=== PATIENT | female | born 1995 | race Two or more races ===

== ENCOUNTER 2019-03-07 13:58 | Emergency (ER) | payer MEDICAID ==
--- NOTE | 2019-03-07 14:31 | EDM.PDOC ---
ED HPI GENERAL MEDICAL PROBLEM - General Chief Complaint: ENGRAVER Problem Stated Complaint: ABDOMINAL PAIN 11 WEEKS Time Seen by Provider: 03/07/19 14:07 Source of Information: Reports: Patient History Limitations: Reports: No Limitations - History of Present Illness INITIAL COMMENTS - FREE TEXT/NARRATIVE: HISTORY AND PHYSICAL: History of present illness: Patient is a 24-year-old female who presents to the ED today with concern of lower abdominal pain and cramping and is approximately 11 weeks gestation. Patient states she follows with Dr. Grubbs at [facility] and has had an ultrasound and lab work. Patient states that everything is "normal "and she has not had any complications thus far in her . Patient denies any vaginal bleeding or discharge. Patient states she is sexually active with her in a monogamous relationship and had STD testing 1.5 weeks ago at [facility] which was negative according to patient. Patient denies any other symptoms or concerns. Patient states she has been having issues with "round ligament pain" that she was told by her ENGRAVER and states that her symptoms today feel like this but a little bit more constant. Patient denies fever, chills, chest pain, shortness of breath, or cough. Denies headache, neck stiff ness, change in vision, syncope, or near syncope. Denies nausea, vomiting, diarrhea, constipation, or dysuria. Has not noted any blood in urine or stool. Patient has been eating and drinking appropriately. Review of systems: As per history of present illness and below otherwise all systems reviewed and negative. Past medical history: As per history of present illness and as reviewed below otherwise noncontributory. Surgical history: As per history of present illness and as reviewed below otherwise noncontributory. Social history: See social history for further information Family history: As per history of present illness and as reviewed below otherwise noncontributory. Physical exam: General: Patient is alert, oriented, and in no acute distress. Patient sitting comfortably on exam table. HEENT: Atraumatic, normocephalic, pupils equal and reactive bilaterally, negative for conjunctival pallor or scleral icterus, mucous membranes moist, TMs normal bilaterally, throat clear, neck supple, nontender, trachea midline. No drooling or trismus noted. No meningeal signs. No hot potato voice noted. Lungs: Clear to auscultation, breath sounds equal bilaterally, chest nontender. Heart: S1S2, regular rate and rhythm without overt murmur Abdomen: Soft, nondistended, nontender. Negative for masses or hepatosplenomegaly. Negative for costovertebral tenderness. Pelvis: Stable nontender. Genitourinary: External genitalia grossly unremarkable. Small amount of white discharge in the vaginal vault. Negative cervical motion tenderness. Uterus approximately 10-12 weeks in gestation and non tender. Rectal: Deferred. Skin: Intact, warm, dry. No lesions or rashes noted. Extremities: Atraumatic, negative for cords or calf pain. Neurovascular unremarkable. Neuro: Awake, alert, oriented. Cranial nerves II through XII unremarkable. Cerebellum unremarkable. Motor and sensory unremarkable throughout. Exam nonfocal. Notes: Patient is adamant about leaving ED prior to all diagnostics completion. Discussed importance for follow-up with her ENGRAVER and primary care provider. Voices understanding and is agreeable to plan of care. Denies any further questions or concerns at this time. Diagnostics: CBC, CMP, UA, Uhcg, lipase, TVUS, G&C, Affirm Therapeutics: None Prescription: Flagyl Impression: Lower abdominal pain in Bacterial vaginosis Plan: 1. Please start and/or continue to take your vitamin with folic acid once daily. 2. Tylenol as needed for pain management. This is safe to use in . 3. Follow up with your ENGRAVER as discussed. Return to the ED as needed and as discussed. Definitive disposition and diagnosis as appropriate pending reevaluation and review of above. cramping Pain Score (Numeric/FACES): 7 - Related Data Allergies Allergy/AdvReac Type Severity Reaction Status Date / Time No Known Allergies Allergy Verified 03/07/19 14:23 Home Meds: Home Meds 95/Iron Fum/Folic/Dha [ + Dha Combo Pack] 1 each PO DAILY 03/07 [History] ED ROS GENERAL - Review of Systems Review Of Systems: Comprehensive ROS is negative, except as noted in HPI. ED EXAM, GENERAL - Physical Exam Exam: See Below (see dictation) Course - Vital Signs Last Recorded V/S: Last Vital Signs Temp 96.8 F 03/07/19 14:24 Pulse 71 03/07/19 17:10 Resp 18 03/07/19 17:10 BP 128/79 03/07/19 17:10 Pulse Ox 98 03/07/19 17:10 - Orders/Labs/Meds Orders: Active Orders 24 hr Category Date Time Status CHLAMYDIA AND GONORRHEA BY TMA Stat Lab 03/07/19 15:22 Received Labs: Laboratory Tests 03/07/19 03/07/19 03/07/19 Range/Units 14:50 14:50 14:50 WBC 12.17 H (4.0-11.0) K/uL RBC 4.56 (4.30-5.90) M/uL Hgb 14.3 (12.0-16.0) g/dL Hct 40.4 (36.0-46.0) % MCV 88.6 (80.0-98.0) fL MCH 31.4 (27.0-32.0) pg MCHC 35.4 (31.0-37.0) g/dL RDW Std Deviation 40.1 (28.0-62.0) fl RDW Coeff of Edwin 13 (11.0-15.0) % Plt Count 278 (150-400) K/uL MPV 10.20 (7.40-12.00) fL Neut % (Auto) 71.8 (48.0-80.0) % Lymph % (Auto) 21.4 (16.0-40.0) % [place] % (Auto) 5.9 (0.0-15.0) % Eos % (Auto) 0.7 (0.0-7.0) % Baso % (Auto) 0.2 (0.0-1.5) % Neut # (Auto) 8.7 H (1.4-5.7) K/uL Lymph # (Auto) 2.6 H (0.6-2.4) K/uL [place] # (Auto) 0.7 (0.0-0.8) K/uL Eos # (Auto) 0.1 (0.0-0.7) K/uL Baso # (Auto) 0.0 (0.0-0.1) K/uL Nucleated RBC % 0.0 /100WBC Nucleated RBCs # 0 K/uL Sodium 135 L (136-145) mmol/L Potassium 3.5 (3.5-5.1) mmol/L Chloride 102 (98-107) mmol/L Carbon Dioxide 20.9 L (21.0-32.0) mmol/L BUN 10 (7.0-18.0) mg/dL Creatinine 0.5 L (0.6-1.0) mg/dL Est Cr Clr Drug Dosing 136.03 mL/min Estimated GFR (MDRD) > 60.0 ml/min Glucose 92 (74-106) mg/dL Calcium 8.4 L (8.5-10.1) mg/dL Total Bilirubin 0.2 (0.2-1.0) mg/dL AST 14 L (15-37) IU/L ALT 20 (14-63) IU/L Alkaline Phosphatase 44 L (46-116) U/L Total Protein 7.5 (6.4-8.2) g/dL Albumin 3.6 (3.4-5.0) g/dL Globulin 3.9 (2.6-4.0) g/dL Albumin/Globulin Ratio 0.9 (0.9-1.6) Lipase 70 L (73-393) U/L HCG, Quant 452763.0 mIU/mL Urine Color Urine Appearance Urine pH (5.0-8.0) Ur Specific [place] (1.001-1.035) Urine Protein (NEGATIVE) mg/dL Urine Glucose (UA) (NEGATIVE) mg/dL Urine Ketones (NEGATIVE) mg/dL Urine Occult Blood (NEGATIVE) Urine Nitrite (NEGATIVE) Urine Bilirubin (NEGATIVE) Urine Urobilinogen (<2.0) EU/dL Ur Leukocyte Esterase (NEGATIVE) Urine HCG, Qual (NEGATIVE) Sary species DNA (NEGATIVE) Gardnerella DNA Probe (NEGATIVE) Trichomonas DNA Probe (NEGATIVE) 03/07/19 03/07/19 03/07/19 Range/Units 15:22 15:22 16:50 WBC (4.0-11.0) K/uL RBC (4.30-5.90) M/uL Hgb (12.0-16.0) g/dL Hct (36.0-46.0) % MCV (80.0-98.0) fL MCH (27.0-32.0) pg MCHC (31.0-37.0) g/dL RDW Std Deviation (28.0-62.0) fl RDW Coeff of Edwin (11.0-15.0) % Plt Count (150-400) K/uL MPV (7.40-12.00) fL Neut % (Auto) (48.0-80.0) % Lymph % (Auto) (16.0-40.0) % [place] % (Auto) (0.0-15.0) % Eos % (Auto) (0.0-7.0) % Baso % (Auto) (0.0-1.5) % Neut # (Auto) (1.4-5.7) K/uL Lymph # (Auto) (0.6-2.4) K/uL [place] # (Auto) (0.0-0.8) K/uL Eos # (Auto) (0.0-0.7) K/uL Baso # (Auto) (0.0-0.1) K/uL Nucleated RBC % /100WBC Nucleated RBCs # K/uL Sodium (136-145) mmol/L Potassium (3.5-5.1) mmol/L Chloride (98-107) mmol/L Carbon Dioxide (21.0-32.0) mmol/L BUN (7.0-18.0) mg/dL Creatinine (0.6-1.0) mg/dL Est Cr Clr Drug Dosing mL/min Estimated GFR (MDRD) ml/min Glucose (74-106) mg/dL Calcium (8.5-10.1) mg/dL Total Bilirubin (0.2-1.0) mg/dL AST (15-37) IU/L ALT (14-63) IU/L Alkaline Phosphatase (46-116) U/L Total Protein (6.4-8.2) g/dL Albumin (3.4-5.0) g/dL Globulin (2.6-4.0) g/dL Albumin/Globulin Ratio (0.9-1.6) Lipase (73-393) U/L HCG, Quant mIU/mL Urine Color YELLOW Urine Appearance CLEAR Urine pH 6.0 (5.0-8.0) Ur Specific [place] 1.025 (1.001-1.035) Urine Protein NEGATIVE (NEGATIVE) mg/dL Urine Glucose (UA) NEGATIVE (NEGATIVE) mg/dL Urine Ketones NEGATIVE (NEGATIVE) mg/dL Urine Occult Blood NEGATIVE (NEGATIVE) Urine Nitrite NEGATIVE (NEGATIVE) Urine Bilirubin NEGATIVE (NEGATIVE) Urine Urobilinogen 0.2 (<2.0) EU/dL Ur Leukocyte Esterase NEGATIVE (NEGATIVE) Urine HCG, Qual POSITIVE (NEGATIVE) Sary species DNA NEGATIVE (NEGATIVE) Gardnerella DNA Probe POSITIVE H (NEGATIVE) Trichomonas DNA Probe NEGATIVE (NEGATIVE) Departure - Departure Time of Disposition: 16:54 Disposition: Home, Self-Care 01 Clinical Impression: Lower abdominal pain, Bacterial vaginosis Qualifiers: Weeks of gestation: 11 weeks Qualified Code(s): Z3A.11 - 11 weeks gestation of - Discharge Information Instructions: First Trimester of , [id number], Abdominal Pain, Adult , [id number] Referrals: Nina Grubbs MD [Primary Care Provider] - Forms: ED Department Discharge Additional Instructions: The following information is given to patients seen in the emergency department who are being discharged to home. This information is to outline your options for follow-up care. We provide all patients seen in our emergency department with a follow-up referral. The need for follow-up, as well as the timing and circumstances, are variable depending upon the specifics of your emergency department visit. If you don't have a primary care physician on staff, we will provide you with a referral. We always advise you to contact your personal physician following an emergency department visit to inform them of the circumstance of the visit and for follow-up with them and/or the need for any referrals to a consulting specialist. The emergency department will also refer you to a specialist when appropriate. This referral assures that you have the opportunity for follow-up care with a specialist. All of these measure are taken in an effort to provide you with optimal care, which includes your follow-up. Under all circumstances we always encourage you to contact your private physician who remains a resource for coordinating your care. When calling for follow-up care, please make the office aware that this follow-up is from your recent emergency room visit. If for any reason you are refused follow-up, please contact the [facility] at and asked to speak to the emergency department charge nurse. [facility] [address] [place] [id number] [facility] [address] [place] [address] [facility] [address] [place] [address] 1. Please start and/or continue to take your vitamin with folic acid once daily. 2. Tylenol as needed for pain management. This is safe to use in . 3. Follow up with your ENGRAVER as discussed. Return to the ED as needed and as discussed. Sepsis Event Note - Evaluation Sepsis Screening Result: No Definite Risk - Focused Exam Vital Signs: Vital Signs Temp Pulse Resp BP Pulse Ox 03/07/19 17:10 71 18 128/79 98 03/07/19 14:24 96.8 F 85 18 131/78 99 Date Exam was Performed: 03/07/19 Time Exam was Performed: 21:15 - My Orders Last 24 Hours: My Active Orders 03/07/19 15:22 CHLAMYDIA AND GONORRHEA BY TMA Stat - Assessment/Plan Last 24 Hours: My Active Orders 03/07/19 15:22 CHLAMYDIA AND GONORRHEA BY TMA Stat
[2019-03-07 15:25] LABS: BLOOD UREA NITROGEN,BUN 10 mg/dL (7.0-18.0); CARBON DIOXIDE,CO2 20.9 mmol/L (21.0-32.0); CHLORIDE,CL 102 mmol/L (98-107); GLUCOSE RANDOM 92 mg/dL (74-106); LIPASE 70 U/L (73-393); POTASSIUM,K 3.5 mmol/L (3.5-5.1); SODIUM,NA 135 mmol/L (136-145)
--- NOTE | 2019-03-07 16:31 | US ---
1st trimester obstetrical ultrasound: Multiple real-time images were obtained transabdominally. Comparison: No previous study for current . Dates: Current ultrasound: FATUMA 09/22/19, gestational age 11 weeks 4 days Single intrauterine gestation is seen. Amniotic fluid volume is normal. Embryo is identified. No subchorionic hemorrhage is seen. 2 cm cyst is noted within the right ovary most likely representing small corpus luteum cyst. Maternal left ovary ears within normal limits. Measurements: Graford-rump length: 46.65 mm - 11 weeks 4 days Heart rate: 165 BPM Impression: 1. Single intrauterine gestation. Dates as noted above. 2. No complicating process is seen by ultrasound at this time. Other incidental findings as noted above. Diagnostic code #2 This report was dictated in [place] Standard Time
[2019-03-11 13:07] LABS: C.TRACHOMATIS BY TMA Negative (Negative); N.GONORRHOEAE BY TMA Negative (Negative)
== END 2019-03-07 17:08 | disposition home or self-care (01) ==
LOC: MW.ED 13:58
DX: O23.591 Infection of other part of genital tract in pregnancy, first trimester (principal); O99.89 Other specified diseases and conditions complicating pregnancy, childbirth and the puerperium; R10.30 Lower abdominal pain, unspecified; Z3A.11 11 weeks gestation of pregnancy; Z34.91 Encounter for supervision of normal pregnancy, unspecified, first trimester
CPT/HCPCS: 36415; 76801; 76801-26; 80053; 81003; 81025; 83690; 84702; 85025; 87480; 87491; 87510; 87591; 87660; 99283; 99284-25

== ENCOUNTER 2019-04-11 15:10 | Emergency (ER) | payer MEDICAID ==
[2019-04-11] MEDS ORDERED: Ertapenem 1 GM Vial IM SCH (15:30)
--- NOTE | 2019-04-11 15:34 | EDM.PDOC ---
ED HPI GENERAL MEDICAL PROBLEM - General Chief Complaint: Skin Complaint Stated Complaint: BOIL ON ARM Time Seen by Provider: 04/11/19 15:29 Source of Information: Reports: Patient - History of Present Illness INITIAL COMMENTS - FREE TEXT/NARRATIVE: HISTORY AND PHYSICAL: History of present illness: [Patient presents with a boil on the left forearm, I&D had been performed at [facility] with flushing and packing in place, I&D was performed yesterday she took her first dose of clindamycin yesterday afternoon and last night at approximately 8 PM, repeated this morning so third dose of 300 mg clindamycin Hence less than 24 hours treatment, she has had repacking performed today and apparently was recommended to be seen here through the emergency room however at this time clindamycin has not yet reached maximal therapeutic benefit. And treatment is on course there is a red indurated lesion with I&D on the forearm there is 4 cm of induration and tenderness there is an additional 2 to 3 cm of pink non-tender tissue surrounding, the lesion is confluent consistent with abscess and cellulitis post I&D Chills sweats Review of systems: As per history of present illness and below otherwise all systems reviewed and negative. Past medical history: As per history of present illness and as reviewed below otherwise noncontributory. Surgical history: As per history of present illness and as reviewed below otherwise noncontributory. Social history: No reported history of drug or alcohol abuse. Family history: As per history of present illness and as reviewed below otherwise noncontributory. Physical exam: HEENT: Atraumatic, normocephalic, pupils reactive, negative for conjunctival pallor or scleral icterus, mucous membranes moist, throat clear, neck supple, nontender, trachea midline. Lungs: Clear to auscultation, breath sounds equal bilaterally, chest nontender. Heart: S1S2, regular, negative for clicks, rubs, or JVD. Abdomen: Soft, nondistended, nontender. Negative for masses or hepatosplenomegaly. Negative for costovertebral tenderness. Pelvis: Stable nontender. Genitourinary: Deferred. Rectal: Deferred. Extremities: Atraumatic, negative for cords or calf pain. Neurovascular unremarkable. Neuro: Awake, alert, oriented. Cranial nerves II through XII unremarkable. Cerebellum unremarkable. Motor and sensory unremarkable throughout. Exam nonfocal. As per HPI otherwise unremarkable Diagnostics: [: ] Therapeutics: [New current medication Invanz 1 g IM provided continue current management, repack sunday as per pcp recommendation ] Impression: [cellulitis and abcess post I &D ] Definitive disposition and diagnosis as appropriate pending reevaluation and review of above. - Related Data Allergies Allergy/AdvReac Type Severity Reaction Status Date / Time No Known Allergies Allergy Verified 04/11/19 15:20 Home Meds: Home Meds 95/Iron Fum/Folic/Dha [ + Dha Combo Pack] 1 each PO DAILY 03/07 [History] Clindamycin HCl 2 tab PO TID 04/11/19 [History] Past Medical History - Past Health History Medical/Surgical History: Denies Medical/Surgical History HEENT History: Reports: None Cardiovascular History: Reports: None Respiratory History: Reports: None Gastrointestinal History: Reports: None Genitourinary History: Reports: None [employer] History: Reports: None Musculoskeletal History: Reports: None Neurological History: Reports: None Psychiatric History: Reports: None Endocrine/Metabolic History: Reports: None Hematologic History: Reports: None Immunologic History: Reports: None Oncologic (Cancer) History: Reports: None Dermatologic History: Reports: None - Infectious Disease History Infectious Disease History: Reports: None - Past Surgical History Head Surgeries/Procedures: Reports: None HEENT Surgical History: Reports: None Cardiovascular Surgical History: Reports: None Respiratory Surgical History: Reports: None GI Surgical History: Reports: None Female Surgical History: Reports: None Endocrine Surgical History: Reports: None Neurological Surgical History: Reports: None Musculoskeletal Surgical History: Reports: None Oncologic Surgical History: Reports: None Dermatological Surgical History: Reports: None Social & Family History - Family History Family Medical History: Noncontributory - Tobacco Use Smoking Status *Q: Current Every Day Smoker Years of Tobacco use: 6 Packs/Tins Daily: 0.4 - Caffeine Use Caffeine Use: Reports: None - Recreational Drug Use Recreational Drug Use: No ED ROS GENERAL - Review of Systems Review Of Systems: See Below ED EXAM, SKIN/RASH Exam: See Below Course - Vital Signs Last Recorded V/S: Last Vital Signs Temp 98.1 F 04/11/19 15:15 Pulse 90 04/11/19 15:15 Resp 18 04/11/19 15:15 BP 137/75 02/07/20 15:15 Pulse Ox 99 04/11/19 15:15 - Orders/Labs/Meds Orders: Active Orders 24 hr Category Date Time Status Ertapenem [INVanz] Med 04/11/19 15:30 Ordered 1 gm IM Q24H Medication Orders Ertapenem (Invanz) 1 gm IM Q24H [facility] Meds: Medications Generic Name Dose Route Start Last Admin Trade Name Eva PRN Reason Stop Dose Admin Ertapenem 1 gm 04/11/19 15:30 Invanz IM Q24H JAVIER Departure - Departure Time of Disposition: 15:33 Disposition: Home, Self-Care 01 Condition: Good Clinical Impression: Abscess, Cellulitis - Discharge Information Referrals: Nina Grubbs MD [Primary Care Provider] - Additional Instructions: The following information is given to patients seen in the emergency department who are being discharged to home. This information is to outline your options for follow-up care. We provide all patients seen in our emergency department with a follow-up referral. The need for follow-up, as well as the timing and circumstances, are variable depending upon the specifics of your emergency department visit. If you don't have a primary care physician on staff, we will provide you with a referral. We always advise you to contact your personal physician following an emergency department visit to inform them of the circumstance of the visit and for follow-up with them and/or the need for any referrals to a consulting specialist. The emergency department will also refer you to a specialist when appropriate. This referral assures that you have the opportunity for follow-up care with a specialist. All of these measure are taken in an effort to provide you with optimal care, which includes your follow-up. Under all circumstances we always encourage you to contact your private physician who remains a resource for coordinating your care. When calling for follow-up care, please make the office aware that this follow-up is from your recent emergency room visit. If for any reason you are refused follow-up, please contact the [facility] emergency department at and asked to speak to the emergency department charge nurse. Sepsis Event Note - Evaluation Sepsis Screening Result: No Definite Risk - Focused Exam Vital Signs: Vital Signs Temp Pulse Resp BP Pulse Ox 04/11/19 15:15 98.1 F 90 18 137/75 99 Date Exam was Performed: 04/11/19 Time Exam was Performed: 15:29 - My Orders Last 24 Hours: My Active Orders 04/11/19 15:30 Ertapenem [INVanz] 1 gm IM Q24H - Assessment/Plan Last 24 Hours: My Active Orders 04/11/19 15:30 Ertapenem [INVanz] 1 gm IM Q24H
[2019-04-11] MEDS ORDERED: Ertapenem 1 GM in Lidocaine 1% 3.2 ML IM SCH (16:15)
== END 2019-04-11 17:05 | disposition home or self-care (01) ==
LOC: MW.ED 15:10
DX: L02.414 Cutaneous abscess of left upper limb (principal); L03.114 Cellulitis of left upper limb; F17.210 Nicotine dependence, cigarettes, uncomplicated
CPT/HCPCS: 96372; 99283; J1335; J2001

== ENCOUNTER 2019-09-15 07:30 | Inpatient (IN) | payer MEDICAID ==
[2019-09-15] MEDS ORDERED: Sodium Chloride 0.9% 2.5 ML Syringe FLUSH PRN (07:53)
[2019-09-15] MEDS ORDERED: Sodium Chloride 0.9% 10 ML SDV IV PRN (07:53)
[2019-09-15] MEDS ORDERED: Nalbuphine 10 MG/1 ML Vial IVPUSH PRN (07:53)
[2019-09-15] MEDS ORDERED: Tranexamic Acid 1,000 MG in Sodium Chloride 0.9% 100 ML IV PRN (07:53)
[2019-09-15] MEDS ORDERED: Butorphanol 1 MG/ML SDV IVPUSH PRN (07:53)
[2019-09-15] MEDS ORDERED: Lidocaine 1% 50 ML MDV INJECT PRN (07:53)
[2019-09-15] MEDS ORDERED: Carboprost Tromethamine 250 MCG/1 ML Amp IM PRN (07:53)
[2019-09-15] MEDS ORDERED: Misoprostol 200 MCG Tab PO PRN (07:53)
[2019-09-15] MEDS ORDERED: Ondansetron 4 MG/2 ML SDV IVPUSH PRN (07:53)
[2019-09-15] MEDS ORDERED: Sodium Chloride 0.9% 10 ML Syringe FLUSH PRN (07:53)
[2019-09-15] MEDS ORDERED: Water For Irrigation,Sterile 1,000 ML Container IRR PRN (07:53)
[2019-09-15] MEDS ORDERED: Methylergonovine 0.2 MG/1 ML Amp IM PRN (07:53)
[2019-09-15] MEDS ORDERED: Terbutaline 1 MG/ML SDV SUBCUT PRN (07:57)
[2019-09-15] MEDS ORDERED: Oxytocin/0.9 % Sodium Chloride 30 UNIT/500 ML BAG IV SCH ×2 (08:00)
[2019-09-15] MEDS: Lactated Ringers 1,000 ML IV SCH ×3 (09:29→14:44)
--- NOTE | 2019-09-15 13:55 | PCM.PREANE ---
Preanesthetic Assessment - Anesthesia/Transfusion/Family Hx Anesthesia History: Prior Anesthesia Without Reaction Family History of Anesthesia Reaction: No Transfusion History: No Prior Transfusion(s) - Review of Systems General: No Symptoms Pulmonary: No Symptoms Cardiovascular: No Symptoms Gastrointestinal: No Symptoms Neurological: No Symptoms Other: Reports: None - Physical Assessment Height: 5 ft 3 in Weight: 80.739 kg ASA Class: 2 Mental Status: Alert & Oriented x3 Airway Class: Mallampati = 2 Dentition: Reports: Normal Dentition Thyro-Mental Finger Breadths: 3 Mouth Opening Finger Breadths: 3 ROM/Head Extension: Full Lungs: Clear to Auscultation, Normal Respiratory Effort Cardiovascular: Regular Rate, Regular Rhythm - Lab Values: Laboratory Last Values WBC 10.19 K/uL (4.0-11.0) 09/15/19 09:15 RBC 4.31 M/uL (4.30-5.90) 09/15/19 09:15 Hgb 13.8 g/dL (12.0-16.0) 09/15/19 09:15 Hct 39.9 % (36.0-46.0) 09/15/19 09:15 MCV 92.6 fL (80.0-98.0) 09/15/19 09:15 MCH 32.0 pg (27.0-32.0) 09/15/19 09:15 MCHC 34.6 g/dL (31.0-37.0) 09/15/19 09:15 RDW Std Deviation 44.0 fl (28.0-62.0) 09/15/19 09:15 RDW Coeff of Edwin 13 % (11.0-15.0) 09/15/19 09:15 Plt Count 239 K/uL (150-400) 09/15/19 09:15 MPV 10.50 fL (7.40-12.00) 09/15/19 09:15 Nucleated RBC % 0.0 /100WBC 09/15/19 09:15 Nucleated RBCs # 0 K/uL 09/15/19 09:15 COVID-19 (SIMON) NEGATIVE (NEGATIVE) 09/15/19 07:40 Blood Type O POSITIVE 09/15/19 09:15 Antibody Screen NEGATIVE 09/15/19 09:15 - Allergies Allergies/Adverse Reactions: Allergies Allergy/AdvReac Type Severity Reaction Status Date / Time No Known Allergies Allergy Verified 04/11/19 15:20 - Acknowledgements Anesthesia Type Planned: Epidural Pt an Appropriate Candidate for the Planned Anesthesia: Yes Alternatives and Risks of Anesthesia Discussed w Pt/Guardian: Yes Pt/Guardian Understands and Agrees with Anesthesia Plan: Yes PreAnesthesia Questionnaire - Past Health History Medical/Surgical History: Denies Medical/Surgical History HEENT History: Reports: Impaired Vision Cardiovascular History: Reports: None Respiratory History: Reports: None Gastrointestinal History: Reports: GERD Genitourinary History: Reports: None CLINICAL PATHOLOGIST History: Reports: : 3 Para: 1 LMP (Approximate): Musculoskeletal History: Reports: Fracture Neurological History: Reports: Migraines Psychiatric History: Reports: Anxiety Endocrine/Metabolic History: Reports: None Hematologic History: Reports: None Immunologic History: Reports: None Oncologic (Cancer) History: Reports: None Dermatologic History: Reports: None - Infectious Disease History Infectious Disease History: Reports: Influenza, MRSA - Past Surgical History Head Surgeries/Procedures: Reports: None HEENT Surgical History: Reports: Other (See Below) Other HEENT Surgeries/Procedures: root canal Cardiovascular Surgical History: Reports: None Respiratory Surgical History: Reports: None GI Surgical History: Reports: None Female Surgical History: Reports: None Endocrine Surgical History: Reports: None Neurological Surgical History: Reports: None Musculoskeletal Surgical History: Reports: None Oncologic Surgical History: Reports: None Dermatological Surgical History: Reports: None - SUBSTANCE USE Smoking Status *Q: Current Every Day Smoker Tobacco Use Within Last Twelve Months: Cigarettes Second Hand Smoke Exposure: No Recreational Drug Use History: Yes Recreational Drug Type: Reports: Marijuana/Hashish - HOME MEDS Home Medications: Home Meds 95/Iron Fum/Folic/Dha [ + Dha Combo Pack] 1 each PO DAILY 03/07/19 [History] Ondansetron [Zofran] 4 mg PO Q8H PRN 09/15/19 [History] - CURRENT (IN HOUSE) MEDS Current Meds: Current Medications Butorphanol Tartrate (Stadol) 1 mg IVPUSH Q1H PRN PRN Reason: Pain Carboprost Tromethamine (Hemabate Ds) 250 mcg IM ASDIRECTED PRN PRN Reason: Post Hemorrhage Lactated Ringer's (Ringers, Lactated) 1,000 mls @ 150 mls/hr IV ASDIRECTED JAVIER Last Admin: 09/15/19 09:29 Dose: 150 mls/hr Documented by: Oxytocin/Sodium Chloride (Oxytocin 30 Unit/500 Ml-Ns) 30 unit in 500 mls @ 500 mls/hr IV TITRATE JAVIER Tranexamic Acid 1,000 mg/ (Sodium Chloride) 110 mls @ 660 mls/hr IV ONETIME PRN PRN Reason: Bleeding Oxytocin/Sodium Chloride (Oxytocin 30 Unit/500 Ml-Ns) 30 unit in 500 mls @ 2 mls/hr IV TITRATE JAVIER; Protocol Last Titration: 09/15/19 13:16 Dose: 16 munits/min, 16 mls/hr Documented by: Lidocaine HCl (Xylocaine 1%) 50 ml INJECT ONETIME PRN PRN Reason: Laceration repair Methylergonovine Maleate (Methergine) 0.2 mg IM ASDIRECTED PRN PRN Reason: Post Hemorrhage Misoprostol (Cytotec) 200 mcg PO ONETIME PRN PRN Reason: Post Hemorrhage Nalbuphine HCl (Nubain) 10 mg IVPUSH Q1H PRN PRN Reason: Pain (severe 7-10) Ondansetron HCl (Zofran) 4 mg IVPUSH Q4H PRN PRN Reason: Nausea/Vomiting Sodium Chloride (Saline Flush) 10 ml FLUSH ASDIRECTED PRN PRN Reason: Keep Vein Open Sodium Chloride (Saline Flush) 2.5 ml FLUSH ASDIRECTED PRN PRN Reason: Keep Vein Open Sodium Chloride (Normal Saline) 10 ml IV ASDIRECTED PRN PRN Reason: IV Use Sterile Water (Sterile Water For Irrigation) 1,000 ml IRR ASDIRECTED PRN PRN Reason: delivery Terbutaline Sulfate (Brethine) 0.25 mg SUBCUT ASDIRECTED PRN PRN Reason: Tacysystole
[2019-09-15] MEDS ORDERED: Bupivicaine/fentaNYL/NS 250 ML ONE (13:57)
[2019-09-15] MEDS ORDERED: oxyCODONE 5 MG Tab PO PRN (16:35)
[2019-09-15] MEDS ORDERED: Lanolin 100% Cream 7 GM Tube TOP PRN (16:35)
[2019-09-15] MEDS ORDERED: Witch Hazel Medicated Pads 40/Jar TOP PRN (16:35)
[2019-09-15] MEDS ORDERED: Bisacodyl 10 MG Supp RECTAL PRN (16:35)
[2019-09-15] MEDS ORDERED: Benzocaine/Menthol 20%-0.5% Spray 78 GM Cannister TOP PRN (16:35)
[2019-09-15] MEDS ORDERED: Docusate Sodium 100 MG Cap PO PRN (16:35)
[2019-09-15] MEDS ORDERED: Acetaminophen 500 MG Tab PO PRN (16:35)
--- NOTE | 2019-09-15 16:38 | PCM.DEL ---
L & D Note - General Info Date of Service: 09/15/19 Mother's Due Date: 09/21/19 - Delivery Note Labor: Induced by Oxytocin Delivery Outcome: Livebirth Infant Delivery Method: Spontaneous Vaginal Delivery-Single Presentation: Vertex Nuchal Cord: None Anesthesia Type: Combined Spinal Epidural Amniotic Fluid Description: Clear Episiotomy Type: None Laceration: None Placenta: Intact, Spontaneous Cord: 3 Vessels Estimated Blood Loss: 400 Resuscitation Needed: No : Suctioned, Bulb Syringe, Stimulated, Warmed, [place] Used Score 1 min: 9 Score 5 min: 9 - General Info Date of Service: 09/15/19 - Patient Data Weight - Most Recent: 80.739 kg Lab Results Last 24 Hours: Laboratory Results - last 24 hr 09/15/19 09/15/19 09/15/19 Range/Units 07:40 09:15 09:15 WBC 10.19 (4.0-11.0) K/uL RBC 4.31 (4.30-5.90) M/uL Hgb 13.8 (12.0-16.0) g/dL Hct 39.9 (36.0-46.0) % MCV 92.6 (80.0-98.0) fL MCH 32.0 (27.0-32.0) pg MCHC 34.6 (31.0-37.0) g/dL RDW Std Deviation 44.0 (28.0-62.0) fl RDW Coeff of Edwin 13 (11.0-15.0) % Plt Count 239 (150-400) K/uL MPV 10.50 (7.40-12.00) fL Nucleated RBC % 0.0 /100WBC Nucleated RBCs # 0 K/uL COVID-19 (SIMON) NEGATIVE (NEGATIVE) Blood Type O POSITIVE Antibody Screen NEGATIVE Med Orders - Current: Current Medications Butorphanol Tartrate (Stadol) 1 mg IVPUSH Q1H PRN PRN Reason: Pain Last Admin: 09/15/19 14:08 Dose: 1 mg Documented by: Carboprost Tromethamine (Hemabate Ds) 250 mcg IM ASDIRECTED PRN PRN Reason: Post Hemorrhage Lactated Ringer's (Ringers, Lactated) 1,000 mls @ 150 mls/hr IV ASDIRECTED JAVIER Last Infusion: 09/15/19 14:30 Dose: 150 mls/hr Documented by: Oxytocin/Sodium Chloride (Oxytocin 30 Unit/500 Ml-Ns) 30 unit in 500 mls @ 500 mls/hr IV TITRATE JAVIER Tranexamic Acid 1,000 mg/ (Sodium Chloride) 110 mls @ 660 mls/hr IV ONETIME PRN PRN Reason: Bleeding Oxytocin/Sodium Chloride (Oxytocin 30 Unit/500 Ml-Ns) 30 unit in 500 mls @ 2 mls/hr IV TITRATE JAVIER; Protocol Last Titration: 09/15/19 13:16 Dose: 16 munits/min, 16 mls/hr Documented by: Lidocaine HCl (Xylocaine 1%) 50 ml INJECT ONETIME PRN PRN Reason: Laceration repair Methylergonovine Maleate (Methergine) 0.2 mg IM ASDIRECTED PRN PRN Reason: Post Hemorrhage Misoprostol (Cytotec) 200 mcg PO ONETIME PRN PRN Reason: Post Hemorrhage Nalbuphine HCl (Nubain) 10 mg IVPUSH Q1H PRN PRN Reason: Pain (severe 7-10) Ondansetron HCl (Zofran) 4 mg IVPUSH Q4H PRN PRN Reason: Nausea/Vomiting Sodium Chloride (Saline Flush) 10 ml FLUSH ASDIRECTED PRN PRN Reason: Keep Vein Open Sodium Chloride (Saline Flush) 2.5 ml FLUSH ASDIRECTED PRN PRN Reason: Keep Vein Open Sodium Chloride (Normal Saline) 10 ml IV ASDIRECTED PRN PRN Reason: IV Use Sterile Water (Sterile Water For Irrigation) 1,000 ml IRR ASDIRECTED PRN PRN Reason: delivery Terbutaline Sulfate (Brethine) 0.25 mg SUBCUT ASDIRECTED PRN PRN Reason: Tacysystole Discontinued Medications Fentanyl/Bupivacaine HCl (Fentanyl/Bupivacaine/Ns 2 Mcg-0.125% 250 Ml) Confirm Administered Dose 250 mls @ as directed .ROUTE .STK-MED ONE Stop: 09/15/19 13:58 - Problem List & Annotations (1) Vaginal delivery SNOMED Code(s): 840325671 Code(s): O80 - ENCOUNTER FOR FULL-TERM UNCOMPLICATED DELIVERY Status: Acute Current Visit: Yes - Problem List Review Problem List Initiated/Reviewed/Updated: Yes - My Orders Last 24 Hours: My Active Orders 09/15/19 07:53 Butorphanol [Stadol] 1 mg IVPUSH Q1H PRN Carboprost Tromethamine [Hemabate DS] 250 mcg IM ASDIRECTED PRN Lidocaine 1% [Xylocaine 1%] 50 ml INJECT ONETIME PRN Methylergonovine [Methergine] 0.2 mg IM ASDIRECTED PRN Nalbuphine [Nubain] 10 mg IVPUSH Q1H PRN Ondansetron [Zofran] 4 mg IVPUSH Q4H PRN Sodium Chloride 0.9% [Normal Saline] 10 ml IV ASDIRECTED PRN Sodium Chloride 0.9% [Saline Flush] 10 ml FLUSH ASDIRECTED PRN Sodium Chloride 0.9% [Saline Flush] 2.5 ml FLUSH ASDIRECTED PRN Tranexamic Acid [Cyklokapron] 1,000 mg Sodium Chloride 0.9% [Normal Saline] 100 ml IV ONETIME Water For Irrigation,Sterile [Sterile Water for Irrigation] 1,000 ml IRR ASDIRECTED PRN miSOPROStoL [Cytotec] 200 mcg PO ONETIME PRN Resuscitation Status Routine 09/15/19 07:54 Patient Status [ADT] Routine Heart Tones [RC] CONTINUOUS Non Stress Test [RC] PER UNIT ROUTINE May Shower [RC] ASDIRECTED Notify Provider [RC] PRN Up ad Brandy [RC] ASDIRECTED Vaginal Exam [RC] PRN Vital Signs [RC] PER UNIT ROUTINE Scalp Electrode [WOMSER] Per Unit Routine Peripheral IV Insertion Adult [OM.PC] Routine 09/15/19 07:57 Bedrest Bathroom Privileges [RC] ASDIRECTED Communication Order [RC] ASDIRECTED Communication Order [RC] ASDIRECTED Notify Provider [RC] PRN Vaginal Exam [RC] PRN Vital Signs [RC] PER UNIT ROUTINE Terbutaline [Brethine] 0.25 mg SUBCUT ASDIRECTED PRN 09/15/19 08:00 Lactated Ringers [Ringers, Lactated] 1,000 ml IV ASDIRECTED Oxytocin/0.9 % Sodium Chloride [Oxytocin 30 Unit/500 ML-NS] 30 unit in 500 ml IV TITRATE Oxytocin/0.9 % Sodium Chloride [Oxytocin 30 Unit/500 ML-NS] 30 unit in 500 ml IV TITRATE Medication Administration Instruction [OM.PC] Q3H 09/15/19 09:15 RPR (SYPHILIS SERO) W/ RFLX [REF] Routine 09/15/19 Dinner Regular Diet [DIET] 09/15/19 16:35 Patient Status [ADT] Routine May Shower [RC] ASDIRECTED Notify Provider Vital Signs [RC] ASDIRECTED Up ad Brandy [RC] ASDIRECTED Vital Signs [RC] PER UNIT ROUTINE Acetaminophen [Tylenol Extra Strength] 1,000 mg PO Q6H PRN Benzocaine/Menthol [Dermoplast Pain Relief 20%-0.5% [place]] 78 gm TOP ASDIRECTED PRN Docusate Sodium [Colace] 100 mg PO BID PRN Ibuprofen [Motrin] 800 mg PO Q8H PRN Lanolin [Lansinoh HPA] See Dose Instructions TOP ASDIRECTED PRN bisacodyL [Dulcolax] 10 mg RECTAL ONETIME PRN oxyCODONE 5 mg PO Q2H PRN witch Xin [Tucks] 1 pad TOP ASDIRECTED PRN Assess Lochia [WOMSER] Per Unit Routine Assess Uterine Involution [WOMSER] Per Unit Routine Breast Pump [WOMSER] Per Unit Routine Ice Therapy [OM.PC] Per Unit Routine Perineal Care [OM.PC] Per Unit Routine Peripheral IV Discontinue [OM.PC] Routine Sitz Bath [OM.PC] Per Unit Routine 09/15/19 16:36 Cooling Warming Measures [RC] ASDIRECTED 09/16/19 05:11 HEMOGLOBIN/HEMATOCRIT,HH [HEME] Timed - Assessment Assessment:: 24yo s/p at 39w1d - Plan Plan:: Admit to unit for routine care.
--- NOTE | 2019-09-15 17:46 | OR ---
SURGEON: Nina Grubbs MD DATE OF PROCEDURE: 09/15/2019 PREOPERATIVE DIAGNOSES: 1. A 24-year-old, G3, P 1-0-1-1, at 39 weeks and 1 day's gestation. 2. Elective induction of labor. 3. Group B Streptococcus negative. POSTOPERATIVE DIAGNOSES: 1. A 24-year-old, G3, P 1-0-1-1, at 39 weeks and 1 day's gestation. 2. Elective induction of labor. 3. Group B Streptococcus negative. PRIMARY SURGEON: Nina Grubbs MD PROCEDURE: Spontaneous vaginal delivery. FINDINGS: Live female infant in cephalic presentation. score of 9 and 9 at one and five minutes respectively. Weight 2870 g. No lacerations. Placenta intact and with 3-vessel cord. ESTIMATED BLOOD LOSS: 400 mL. INDICATION: This is a 24-year-old, G3, P 1-0-1-1, who presented at 39 weeks and 1 day's gestation for planned elective induction of labor. Upon presentation, her cervix was found to be 2 cm dilated. Pitocin was started for induction. At approximately 5 cm dilated, she received an epidural for pain control. Spontaneous rupture of membranes occurred. The patient progressed to complete cervical dilation, I was called to the room. DESCRIPTION OF PROCEDURE: I arrived to the room with the patient at complete cervical dilation and head at +2 station. Over the next 3 contractions, the patient pushed and delivered a live female infant. The head was delivered followed quickly by the shoulders and the remainder of the body. The infant was placed on the maternal abdomen. After approximately 60 seconds, the cord was clamped and cut. Cord blood was obtained. Placenta then delivered intact and with 3-vessel cord via the Lee-Carvalho maneuver. Perineum was inspected and no lacerations were noted. The fundus was firm. The patient and infant tolerated the delivery well. [id number] / MODL /[id number] MTDD
[2019-09-15] MEDS: Nicotine 7 MG/24 Hr Patch TRDERM SCH (19:41)
[2019-09-15] MEDS: Ibuprofen 800 MG Tab PO PRN (19:42)
[2019-09-16] MEDS: Ibuprofen 800 MG Tab PO PRN ×2 (04:12→15:00)
--- NOTE | 2019-09-16 08:17 | PCM.PNPP ---
- General Info Date of Service: 09/16/19 Functional Status: Reports: Pain Controlled, Tolerating Diet, Ambulating, Urinating - Review of Systems General: Reports: No Symptoms HEENT: Reports: No Symptoms Pulmonary: Reports: No Symptoms Cardiovascular: Reports: No Symptoms Gastrointestinal: Reports: No Symptoms Genitourinary: Reports: No Symptoms Musculoskeletal: Reports: No Symptoms Skin: Reports: No Symptoms Neurological: Reports: No Symptoms Psychiatric: Reports: No Symptoms - Patient Data Vital Signs - Most Recent: Last Vital Signs Temp 36.6 C 09/16/19 04:21 Pulse 70 09/16/19 04:21 Resp 15 09/16/19 04:21 BP 126/82 09/16/19 04:21 Pulse Ox 97 09/16/19 04:21 Weight - Most Recent: 80.739 kg Lab Results - Last 24 Hours: Laboratory Results - last 24 hr 09/15/19 09/15/19 09/15/19 Range/Units 07:40 09:15 09:15 WBC 10.19 (4.0-11.0) K/uL RBC 4.31 (4.30-5.90) M/uL Hgb 13.8 (12.0-16.0) g/dL Hct 39.9 (36.0-46.0) % MCV 92.6 (80.0-98.0) fL MCH 32.0 (27.0-32.0) pg MCHC 34.6 (31.0-37.0) g/dL RDW Std Deviation 44.0 (28.0-62.0) fl RDW Coeff of Edwin 13 (11.0-15.0) % Plt Count 239 (150-400) K/uL MPV 10.50 (7.40-12.00) fL Nucleated RBC % 0.0 /100WBC Nucleated RBCs # 0 K/uL COVID-19 (SIMON) NEGATIVE (NEGATIVE) Blood Type O POSITIVE Antibody Screen NEGATIVE 09/16/19 Range/Units 06:17 WBC (4.0-11.0) K/uL RBC (4.30-5.90) M/uL Hgb 11.1 L (12.0-16.0) g/dL Hct 32.1 L (36.0-46.0) % MCV (80.0-98.0) fL MCH (27.0-32.0) pg MCHC (31.0-37.0) g/dL RDW Std Deviation (28.0-62.0) fl RDW Coeff of Edwin (11.0-15.0) % Plt Count (150-400) K/uL MPV (7.40-12.00) fL Nucleated RBC % /100WBC Nucleated RBCs # K/uL COVID-19 (SIMON) (NEGATIVE) Blood Type Antibody Screen Med Orders - Current: Current Medications Acetaminophen (Tylenol Extra Strength) 1,000 mg PO Q6H PRN PRN Reason: Pain Last Admin: 09/15/19 23:55 Dose: 1,000 mg Documented by: Benzocaine/Menthol (Dermoplast Pain Relief 20%-0.5% [place]) 78 gm TOP ASDIRECTED PRN PRN Reason: Perineal Comfort Measure Bisacodyl (Dulcolax) 10 mg RECTAL ONETIME PRN PRN Reason: Constipation Butorphanol Tartrate (Stadol) 1 mg IVPUSH Q1H PRN PRN Reason: Pain Last Admin: 09/15/19 14:08 Dose: 1 mg Documented by: Carboprost Tromethamine (Hemabate Ds) 250 mcg IM ASDIRECTED PRN PRN Reason: Post Hemorrhage Docusate Sodium (Colace) 100 mg PO BID PRN PRN Reason: Constipation Last Admin: 09/16/19 08:09 Dose: 100 mg Documented by: Emollient Ointment (Lansinoh Hpa) 0 gm TOP ASDIRECTED PRN PRN Reason: Sore Nipples Last Admin: 09/15/19 19:41 Dose: 7 gm Documented by: Lactated Ringer's (Ringers, Lactated) 1,000 mls @ 150 mls/hr IV ASDIRECTED JAVIER Last Infusion: 09/15/19 14:30 Dose: 150 mls/hr Documented by: Oxytocin/Sodium Chloride (Oxytocin 30 Unit/500 Ml-Ns) 30 unit in 500 mls @ 500 mls/hr IV TITRATE JAVIER Tranexamic Acid 1,000 mg/ (Sodium Chloride) 110 mls @ 660 mls/hr IV ONETIME PRN PRN Reason: Bleeding Oxytocin/Sodium Chloride (Oxytocin 30 Unit/500 Ml-Ns) 30 unit in 500 mls @ 2 mls/hr IV TITRATE JAVIER; Protocol Last Titration: 09/15/19 13:16 Dose: 16 munits/min, 16 mls/hr Documented by: Ibuprofen (Motrin) 800 mg PO Q8H PRN PRN Reason: Pain Last Admin: 09/16/19 04:12 Dose: 800 mg Documented by: Lidocaine HCl (Xylocaine 1%) 50 ml INJECT ONETIME PRN PRN Reason: Laceration repair Methylergonovine Maleate (Methergine) 0.2 mg IM ASDIRECTED PRN PRN Reason: Post Hemorrhage Misoprostol (Cytotec) 200 mcg PO ONETIME PRN PRN Reason: Post Hemorrhage Nalbuphine HCl (Nubain) 10 mg IVPUSH Q1H PRN PRN Reason: Pain (severe 7-10) Nicotine (Habitrol) 7 mg TRDERM DAILY [facility] Last Admin: 09/15/19 19:41 Dose: 7 mg Documented by: Ondansetron HCl (Zofran) 4 mg IVPUSH Q4H PRN PRN Reason: Nausea/Vomiting Oxycodone HCl (Oxycodone) 5 mg PO Q2H PRN PRN Reason: Pain Sodium Chloride (Saline Flush) 10 ml FLUSH ASDIRECTED PRN PRN Reason: Keep Vein Open Sodium Chloride (Saline Flush) 2.5 ml FLUSH ASDIRECTED PRN PRN Reason: Keep Vein Open Sodium Chloride (Normal Saline) 10 ml IV ASDIRECTED PRN PRN Reason: IV Use Sterile Water (Sterile Water For Irrigation) 1,000 ml IRR ASDIRECTED PRN PRN Reason: delivery Terbutaline Sulfate (Brethine) 0.25 mg SUBCUT ASDIRECTED PRN PRN Reason: Tacysystole Witch Helene (Tucks) 1 pad TOP ASDIRECTED PRN PRN Reason: comfort care Discontinued Medications Fentanyl/Bupivacaine HCl (Fentanyl/Bupivacaine/Ns 2 Mcg-0.125% 250 Ml) Confirm Administered Dose 250 mls @ as directed .ROUTE .STK-MED ONE Stop: 09/15/19 13:58 - Interaction Disposition, : in Room with Family Infant Interaction: Holding Infant Feeding: Breastfed Infant; Nursed Well Support Person: - Recovery Exam Fundal Tone: Firm Fundal Level: At Umbilicus Fundal Placement: Midline Lochia Amount: Scant Lochia Color: Rubra/Red Perineum Description: Intact, Minimal Bruising/Swelling Episiotomy/Laceration: None Bladder Status: Voiding Urinary Elimination: Voided - Exam General: Alert, Oriented Neck: Supple Lungs: Normal Respiratory Effort GI/Abdominal Exam: Soft, Non-Tender, No Distention Extremities: No Pedal Edema Skin: Warm, Dry, Intact Neurological: No New Focal Deficit Psy/Mental Status: Alert, Normal Affect, Normal Mood - Problem List & Annotations (1) Vaginal delivery SNOMED Code(s): 641420594 Code(s): O80 - ENCOUNTER FOR FULL-TERM UNCOMPLICATED DELIVERY Status: Acute Current Visit: Yes - Problem List Review Problem List Initiated/Reviewed/Updated: Yes - My Orders Last 24 Hours: My Active Orders 09/15/19 07:53 Butorphanol [Stadol] 1 mg IVPUSH Q1H PRN Carboprost Tromethamine [Hemabate DS] 250 mcg IM ASDIRECTED PRN Lidocaine 1% [Xylocaine 1%] 50 ml INJECT ONETIME PRN Methylergonovine [Methergine] 0.2 mg IM ASDIRECTED PRN Nalbuphine [Nubain] 10 mg IVPUSH Q1H PRN Ondansetron [Zofran] 4 mg IVPUSH Q4H PRN Sodium Chloride 0.9% [Normal Saline] 10 ml IV ASDIRECTED PRN Sodium Chloride 0.9% [Saline Flush] 10 ml FLUSH ASDIRECTED PRN Sodium Chloride 0.9% [Saline Flush] 2.5 ml FLUSH ASDIRECTED PRN Tranexamic Acid [Cyklokapron] 1,000 mg Sodium Chloride 0.9% [Normal Saline] 100 ml IV ONETIME Water For Irrigation,Sterile [Sterile Water for Irrigation] 1,000 ml IRR ASDIRECTED PRN miSOPROStoL [Cytotec] 200 mcg PO ONETIME PRN Resuscitation Status Routine 09/15/19 07:54 Patient Status [ADT] Routine May Shower [RC] ASDIRECTED Vital Signs [RC] PER UNIT ROUTINE Scalp Electrode [WOMSER] Per Unit Routine Peripheral IV Insertion Adult [OM.PC] Routine 09/15/19 07:57 Terbutaline [Brethine] 0.25 mg SUBCUT ASDIRECTED PRN 09/15/19 08:00 Lactated Ringers [Ringers, Lactated] 1,000 ml IV ASDIRECTED Oxytocin/0.9 % Sodium Chloride [Oxytocin 30 Unit/500 ML-NS] 30 unit in 500 ml IV TITRATE Oxytocin/0.9 % Sodium Chloride [Oxytocin 30 Unit/500 ML-NS] 30 unit in 500 ml IV TITRATE Medication Administration Instruction [OM.PC] Q3H 09/15/19 09:15 RPR (SYPHILIS SERO) W/ RFLX [REF] Routine 09/15/19 Dinner Regular Diet [DIET] 09/15/19 16:35 Patient Status [ADT] Routine Notify Provider Vital Signs [RC] ASDIRECTED Up ad Brandy [RC] ASDIRECTED Acetaminophen [Tylenol Extra Strength] 1,000 mg PO Q6H PRN Benzocaine/Menthol [Dermoplast Pain Relief 20%-0.5% [place]] 78 gm TOP ASDIRECTED PRN Docusate Sodium [Colace] 100 mg PO BID PRN Ibuprofen [Motrin] 800 mg PO Q8H PRN Lanolin [Lansinoh HPA] See Dose Instructions TOP ASDIRECTED PRN bisacodyL [Dulcolax] 10 mg RECTAL ONETIME PRN oxyCODONE 5 mg PO Q2H PRN witch Helene [Tucks] 1 pad TOP ASDIRECTED PRN Assess Lochia [WOMSER] Per Unit Routine Assess Uterine Involution [WOMSER] Per Unit Routine Breast Pump [WOMSER] Per Unit Routine Ice Therapy [OM.PC] Per Unit Routine Perineal Care [OM.PC] Per Unit Routine Peripheral IV Discontinue [OM.PC] Routine Sitz Bath [OM.PC] Per Unit Routine 09/16/19 08:16 Ready for Discharge [RC] PER UNIT ROUTINE - Assessment Assessment:: 24yo s/p at 39w1d, PPD#1 - Plan Plan:: Desires discharge home today. Reviewed discharge instructions. Encouraged to continue . Encouraged tobacco cessation. Follow-up in 2 weeks to plan surgical sterilization.
[2019-09-16] MEDS: Nicotine 7 MG/24 Hr Patch TRDERM SCH (08:51)
--- NOTE | 2019-09-16 12:47 | PCM48HPAN ---
Post Anesthesia Note - EVALUATION WITHIN 48HRS OF ANESTHETIC Vital Signs in Normal Range: Yes Patient Participated in Evaluation: Yes Respiratory Function Stable: Yes Airway Patent: Yes Cardiovascular Function Stable: Yes Hydration Status Stable: Yes Pain Control Satisfactory: Yes (See comments below ) Nausea and Vomiting Control Satisfactory: Yes Mental Status Recovered: Yes Vital Signs: Last Vital Signs Temp 36.5 C 09/16/19 07:40 Pulse 67 09/16/19 07:40 Resp 16 09/16/19 07:40 BP 132/85 09/16/19 07:40 Pulse Ox 98 09/16/19 07:40 - COMMENTS/OBSERVATIONS Free Text/Narrative:: Pt reports full return of strength and sensation to BLE, and is ambulating without difficulty. Denies nausea, vomiting, and headache. Reports 7-8/10 pain in low back and abdomen. She says this is uncomfortable but tolerable, and that tylenol helps. Reports satisfaction with epidural experience.
== END 2019-09-16 19:10 | disposition home or self-care (01) | DRG 807 ==
LOC: MW.OBCHECK 07:30 → MW.OB 07:31 → MW.OBCHECK 07:53 → MW.OB 07:54 → UNDOADMOB 07:54 → OBSVTOIN 16:35 → INTOOBSV 16:35 → MW.OB 20:00 → UNDODISIN 09-16 19:10
PROVIDERS: ADMIT Obstetrics & Gynecology; ATTEND Obstetrics & Gynecology
PROC: 10E0XZZ Delivery of Products of Conception, External Approach (ICD-10-PCS; principal; 2019-09-15)
PROC: 10907ZC Drainage of Amniotic Fluid, Therapeutic from Products of Conception, Via Natural or Artificial Opening (ICD-10-PCS; 2019-09-15)
PROC: 3E033VJ Introduction of Other Hormone into Peripheral Vein, Percutaneous Approach (ICD-10-PCS; 2019-09-15)
PROC: 3E0R3BZ Introduction of Anesthetic Agent into Spinal Canal, Percutaneous Approach (ICD-10-PCS; 2019-09-15)
DX: O99.334 Smoking (tobacco) complicating childbirth (principal); Z37.0 Single live birth; F17.210 Nicotine dependence, cigarettes, uncomplicated; Z3A.39 39 weeks gestation of pregnancy; Z11.59 Encounter for screening for other viral diseases
CPT/HCPCS: 01967; 36415; 51702; 59025; 59409; 85014; 85018; 85027; 86592; 86593; 86780; 86850; 86900; 86901; A9270-GY; J0595; J2590; J7120; U0002

== ENCOUNTER 2019-10-10 21:41 | Emergency (ER) | payer MEDICAID ==
[2019-10-10] MEDS ORDERED: Sodium Chloride 0.9% 1,000 ML IV ONE (21:55)
--- NOTE | 2019-10-10 22:27 | EDM.PDOC ---
ED HPI GENERAL MEDICAL PROBLEM - General Chief Complaint: VEHICLE OPERATOR Problem Stated Complaint: BLEEDING PROFUSELY POST Time Seen by Provider: 10/10/19 21:50 Source of Information: Reports: Patient History Limitations: Reports: No Limitations - History of Present Illness INITIAL COMMENTS - FREE TEXT/NARRATIVE: 24F 3-weeks post normal vaginal delivery w/o complications presents for vaginal bleeding. Started around 7AM today. Patient notes 3x episodes of heavy vaginal bleeding "like a cup pouring out". Denies any pain. [place] nauseated for last couple of days but no vomiting. No weakness, SOB, dizziness, CP. 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: Musculoskeletal History: Reports: Fracture Neurological History: Reports: Migraines Psychiatric History: Reports: Anxiety Endocrine/Metabolic History: Reports: None Hematologic History: Reports: None Immunologic History: Reports: None Oncologic (Cancer) History: Reports: None Dermatologic History: Reports: None - Infectious Disease History Infectious Disease History: Reports: Influenza, MRSA - Past Surgical History Head Surgeries/Procedures: Reports: None HEENT Surgical History: Reports: Other (See Below) Other HEENT Surgeries/Procedures: root canal Cardiovascular Surgical History: Reports: None Respiratory Surgical History: Reports: None GI Surgical History: Reports: None Female Surgical History: Reports: None Endocrine Surgical History: Reports: None Neurological Surgical History: Reports: None Musculoskeletal Surgical History: Reports: None Oncologic Surgical History: Reports: None Dermatological Surgical History: Reports: None Social & Family History - Family History Family Medical History: Noncontributory HEENT: Reports: None Cardiac: Reports: None Respiratory: Reports: None GI: Reports: None : Reports: None OBGYN: Reports: Musculoskeletal: Reports: None Neurological: Reports: None Psychiatric: Reports: None Endocrine/Metabolic: Reports: Diabetes, Type I, Diabetes, type II Hematologic: Reports: None Immunologic: Reports: None Dermatologic: Reports: None Oncologic: Reports: None - Caffeine Use Caffeine Use: Reports: None - Recreational Drug Use Recreational Drug Use: No ED ROS GENERAL - Review of Systems Review Of Systems: Comprehensive ROS is negative, except as noted in HPI. ED EXAM, GI/ABD - Physical Exam Exam: See Below Exam Limited By: No Limitations General Appearance: Alert, WD/WN, No Apparent Distress Head: Atraumatic, Normocephalic Respiratory/Chest: No Respiratory Distress, Lungs Clear, Normal Breath Sounds, No Accessory Muscle Use GI/Abdominal Exam: Soft, Non-Tender Neurological: Alert Psychiatric: Normal Affect, Normal Mood Skin Exam: Warm, Dry Course - Vital Signs Last Recorded V/S: Last Vital Signs Temp 97.4 F 10/11/19 00:18 Pulse 85 10/11/19 00:18 Resp 18 10/11/19 00:18 BP 146/85 H 10/11/19 00:18 Pulse Ox 96 10/11/19 00:18 - Orders/Labs/Meds Labs: Laboratory Tests 10/10/19 10/10/19 10/10/19 Range/Units 22:45 22:45 22:45 WBC 11.95 H (4.0-11.0) K/uL RBC 4.58 (4.30-5.90) M/uL Hgb 14.8 (12.0-16.0) g/dL Hct 42.6 (36.0-46.0) % MCV 93.0 (80.0-98.0) fL MCH 32.3 H (27.0-32.0) pg MCHC 34.7 (31.0-37.0) g/dL RDW Std Deviation 41.4 (28.0-62.0) fl RDW Coeff of Edwin 12 (11.0-15.0) % Plt Count 338 (150-400) K/uL MPV 10.50 (7.40-12.00) fL Neut % (Auto) 83.5 H (48.0-80.0) % Lymph % (Auto) 13.4 L (16.0-40.0) % [place] % (Auto) 2.9 (0.0-15.0) % Eos % (Auto) 0.0 (0.0-7.0) % Baso % (Auto) 0.2 (0.0-1.5) % Neut # (Auto) 10.0 H (1.4-5.7) K/uL Lymph # (Auto) 1.6 (0.6-2.4) K/uL [place] # (Auto) 0.4 (0.0-0.8) K/uL Eos # (Auto) 0.0 (0.0-0.7) K/uL Baso # (Auto) 0.0 (0.0-0.1) K/uL Nucleated RBC % 0.0 /100WBC Nucleated RBCs # 0 K/uL Sodium 141 (136-145) mmol/L Potassium 3.7 (3.5-5.1) mmol/L Chloride 105 (98-107) mmol/L Carbon Dioxide 23.1 (21.0-32.0) mmol/L BUN 11 (7.0-18.0) mg/dL Creatinine 0.8 (0.6-1.0) mg/dL Est Cr Clr Drug Dosing 88.93 mL/min Estimated GFR (MDRD) > 60.0 ml/min Glucose 109 H (74-106) mg/dL Calcium 8.3 L (8.5-10.1) mg/dL Blood Type O POSITIVE Meds: Medications Discontinued Medications Generic Name Dose Route Start Last Admin Trade Name Freq PRN Reason Stop Dose Admin Sodium Chloride 1,000 mls @ 999 mls/hr 10/10/19 21:55 10/10/19 22:44 Normal Saline IV 10/10/19 22:55 999 mls/hr .Bolus ONE Administration - Re-Assessments/Exams Free Text/Narrative Re-Assessment/Exam: 10/10/19 22:26 Patient presents for heavy vaginal bleeding s/p 3weeks ago. No pain. No signs or symptoms of anemia. Will get labs, POCUS, reassess Free Text/Narrative Re-Assessment/Exam: 10/11/19 03:12 Labs unremarkable; no free fluid POCUS, does have very thickened endometrium, cannot r/o retained POC. Patient has f/u with her OBGYN in 2 days. Return precautions discussed at length. Departure - Departure Time of Disposition: 23:52 Disposition: Home, Self-Care 01 Condition: Good Clinical Impression: Vaginal bleeding - Discharge Information Instructions: Abnormal Uterine Bleeding, [id number] Referrals: Yasmeen Arellano [Primary Care Provider] - (F/u with your OBGYN on Sunday) Forms: ED Department Discharge Additional Instructions: The following information is given to patients seen in the emergency department who are being discharged to home. This information is to outline your options for follow-up care. We provide all patients seen in our emergency department with a follow-up referral. The need for follow-up, as well as the timing and circumstances, are variable depending upon the specifics of your emergency department visit. If you don't have a primary care physician on staff, we will provide you with a referral. We always advise you to contact your personal physician following an emergency department visit to inform them of the circumstance of the visit and for follow-up with them and/or the need for any referrals to a consulting specialist. The emergency department will also refer you to a specialist when appropriate. This referral assures that you have the opportunity for follow-up care with a specialist. All of these measure are taken in an effort to provide you with optimal care, which includes your follow-up. Under all circumstances we always encourage you to contact your private physician who remains a resource for coordinating your care. When calling for follow-up care, please make the office aware that this follow-up is from your recent emergency room visit. If for any reason you are refused follow-up, please contact the [facility] Emergency Department at and asked to speak to the emergency department charge nurse. Sepsis Event Note (ED) - Evaluation Sepsis Screening Result: No Definite Risk - Focused Exam Vital Signs: Vital Signs Temp Pulse Resp BP Pulse Ox 10/11/19 00:18 97.4 F 85 18 146/85 H 96 10/10/19 22:06 99.2 F 105 H 20 143/93 H 98
[2019-10-10 23:04] LABS: BLOOD UREA NITROGEN,BUN 11 mg/dL (7.0-18.0); CARBON DIOXIDE,CO2 23.1 mmol/L (21.0-32.0); CHLORIDE,CL 105 mmol/L (98-107); GLUCOSE RANDOM 109 mg/dL (74-106); POTASSIUM,K 3.7 mmol/L (3.5-5.1); SODIUM,NA 141 mmol/L (136-145)
== END 2019-10-11 00:19 | disposition home or self-care (01) ==
LOC: MW.ED 21:41
DX: O72.2 Delayed and secondary postpartum hemorrhage (principal)
CPT/HCPCS: 36415; 80048; 85025; 86900; 86901; 99284; J7030